=== PATIENT | male | born 1990 | race African-American/Black ===

== ENCOUNTER 2017-02-23 19:20 | Emergency (ER) | payer OTHER | END 2017-02-23 20:10 | disposition home or self-care (01) | LOC: ER 19:20 | PROC: 0H9GXZZ Drainage of Left Hand Skin, External Approach (ICD-10-PCS; principal; 2017-02-23) | DX: L03.012 Cellulitis of left finger (principal); I10 Essential (primary) hypertension | CPT/HCPCS: 99283; A9270-GY ==